=== PATIENT | male | born 1990 | race Caucasian/White ===

== ENCOUNTER 2023-03-23 14:01 | Emergency (ER) | payer SELFPAY ==
--- NOTE | 2023-03-23 14:07 | NUR ---
NO ANSWER @ THIS TIME
--- NOTE | 2023-03-23 15:06 | NUR ---
NO ANSWER AT THIS TIME
--- NOTE | 2023-03-23 15:27 | NUR ---
PATIENT LEFT WITHOUT BEING SEEN BY . NO FURTHER CARE PROVIDED FOR PATIENT.
== END 2023-03-23 15:27 | disposition left against medical advice (07) ==
LOC: MED 14:01
DX: R10.9 Unspecified abdominal pain (principal); Z53.21 Procedure and treatment not carried out due to patient leaving prior to being seen by health care provider